=== PATIENT | male | born 1975 | race Caucasian/White ===

== ENCOUNTER 2021-11-01 07:05 | Day surgery (SDC) | payer BC ==
[2021-10-30 14:32] VITALS: BMI 40.1
[~2021-11-01 07:05] MED LIST: DEXAMETHASONE SOD PHOSPHATE 4 MG/ML 1 ML VIAL IV ONE; LACTATED RINGERS 1,000 ML IV SCH; ONDANSETRON 4 MG/2 ML VIAL IVP ONE; ceFAZolin 3 GM in SODIUM CHLORIDE 0.9% 100 ML IVPB PRN
[2021-11-01] MEDS ORDERED: MIDAZOLAM 2 MG/2 ML VIAL IVP ONE (08:12)
--- NOTE | 2021-11-01 09:04 | P.ANPRN ---
Procedure Note - Anesthesia - Nerve Block Performed Right Adductor Canal Single Time Out Performed: Yes (811) Date of Procedure: 11/01/21 Procedure Start Time: :12 Procedure Stop Time: :24 Location of Patient: PreOp Indication: Acute Post-Operative Pain, Dx/Pain Location (Left foot), Requested by Surgeon Specifically requested for management of pain by DrDelaney: Tyson Villavicencio Sedation Type: Sedate with meaningful contact maintained Preparation: Sterile Prep Position: Supine Catheter: None Needle Types: Pajunk Needle Gauge: 21 (100 mm) Ultrasound used to visualize needle placement: Yes Ultrasound used to observe medication spread: Yes Injectate: 0.5% Ropivacaine (see comment for volume) (20 cc + 2mg of decadron) Blood Aspirated: No Pain Paresthesia on Injection Noted: No Resistance on Injection: Normal Image Stored and Saved: Yes Events: Uneventful and Well Tolerated Right Popliteal Single Time Out Performed: Yes Date of Procedure: 11/01/21 Location of Patient: PreOp Indication: Acute Post-Operative Pain, Dx/Pain Location (Right knee), Requested by Surgeon Specifically requested for management of pain by Dr.: Tyson Villavicencio Sedation Type: Sedate with meaningful contact maintained Preparation: Sterile Prep Position: Left Lateral Catheter: None Needle Types: Pajunk Needle Gauge: 21 (100 mm) Ultrasound used to visualize needle placement: Yes Ultrasound used to observe medication spread: Yes Injectate: 0.5% Ropivacaine (see comment for volume) (20 cc + 2mg of decadron) Blood Aspirated: No Pain Paresthesia on Injection Noted: No Resistance on Injection: Normal Image Stored and Saved: Yes Events: Uneventful and Well Tolerated
[2021-11-01] MEDS ORDERED: MIDAZOLAM 2 MG/2 ML VIAL ONE (09:38)
[2021-11-01] MEDS ORDERED: SUCCINYLCHOLINE CHLORIDE 200 MG/10 ML VIAL IV ONE (09:38)
[2021-11-01] MEDS ORDERED: DEXAMETHASONE SOD PHOSPHATE 4 MG/ML 1 ML VIAL ONE (09:38)
[2021-11-01] MEDS ORDERED: LIDOCAINE 2% INJ 20 MG/ML (2 ML VIAL) ONE (09:38)
[2021-11-01] MEDS ORDERED: PROPOFOL 10 MG/ML 20 ML VIAL IV ONE (09:38)
[2021-11-01] MEDS ORDERED: ROPIVACAINE 5 MG/ML 30 ML VIAL ONE (09:38)
[2021-11-01] MEDS ORDERED: fentaNYL (PF) 50 MCG/ML 2 ML AMP ONE (09:38)
[2021-11-01] MEDS ORDERED: LACTATED RINGERS 1,000 ML IV ONE (10:45)
--- NOTE | 2021-11-01 11:01 | P.OP ---
Date of Procedure: 11/01/21 Preoperative Diagnosis: 1. Achilles insertional tendinitis left 2. Calcaneal spur left 3. Gastroc equinus left Postoperative Diagnosis: 1. Same 2. Same 3. Same Procedure(s) Performed: 1. Secondary repair of Achilles tendon left 2. Excision of calcaneal spur left 3. Gastroc recession left Implants: Arthrex speed bridge Anesthesia: GETA Surgeon: Tyson Villavicencio Estimated Blood Loss (ml): 3 Pathology: none sent Condition: stable Disposition: PACU Description of Procedure: Prior to the patient being brought to the operating room, anesthesia administered nerve block on the surgical extremity. Once completed, the patient was taken into the operating room. Timeout was taken to confirm correct patient identifiers, correct laterality of surgery, and correct procedure. When all staff in the room were in agreement with the timeout, the patient was induced and placed under general anesthesia. The patient was then placed in the prone position on the operating room table. Appropriate padding was placed beneath the patient's face as well as in the thoracic area. Once anesthesia was satisfied with the patient positioning, a well-padded tourniquet was placed on the thigh. Then the leg was prepped and draped in the usual manner. The leg wa s exsanguinated and the tourniquet inflated to 250 mmHg. Attention was directed over the posterior aspect of the leg, where the gastroc recession was performed. A linear midline incision was made distal to the gastroc muscle belly. The incision was deepened down to the subcutaneous layer careful to identify, avoid, and retract any neurovascular structures and cauterize any bleeding vessels. Blunt dissection was carried down to level the deep fascia. The fascia was incised and then bluntly dissected off the gastroc aponeurosis. A transverse incision was made through the aponeurosis from medial to lateral. Once completed the ankle was dorsiflexed and a visible gap. And the aponeurosis, indicating a full release. The wound is thoroughly irrigated. The subcutaneous layer was closed with 4-0 Vicryl. And skin closure done with 3-0 Stratafix in a running subcuticular manner. Then attention was directed over the Achilles insertion. A curvilinear incision was made starting in the medial side of the Achilles tendon then curving posteriorly over the insertion point. The incision was deepened down to the subcutaneous layer, careful to identify, avoid, and retract any neurovascular structures and cauterize any bleeding vessels the skin and subcutaneous layers were dissected in a full-thickness fashion off the Achilles tendon. Incisions are made on the anterior aspect of the Achilles tendon, on the medial and lateral aspects, and extended down to the insertion. The Achilles insertion was then sharply removed off the posterior aspect of the calcaneus. There was a large calcific density in the body of the Achilles tendon superior to the insertion point. This is carefully dissected and removed. Any abnormal tissue in the Achilles tendon insertion was also sharply debrided. Once that was completed attention was directed to the posterior calcaneus where there was a large calcaneal spur. An osteotome was used to remove all the abnormal bony growth in the posterior calcaneus. This also allowed for exposure the bone to help facilitate the reattachment of the Achilles tendon. The area was thoroughly irrigated with sterile saline. The distal end of the Achilles tendon was then grasped and pulled distally while holding the ankle at 90. It was brought into contact at the calcaneus to laurie the insertion point. A transverse line was made and marking the insertion point. Then alvarado were made for the drill holes for the anchoring system. The holes were done medial and lateral and approximate 1 cm from the laurie. A total 4 holes were made. All holes were then tapped. The anchors with the sutures attached to the more placed in the most superior holes. Anchors were advanced down to proper depth. With the Achilles tendon pulled distally to the attachment point line, suture was passed through the medial and lateral aspects of the tendon and pulled through. Then the Reyno were cut and tension was placed on the suture down to the attachment point. Utilizing one suture from each anchor, the ends were pulled through the 4.75 swivel lock anchor which were then aligned with their corresponding drill holes. Utilizing proper tensioning techniques and keeping tension on the Achilles tendon to hold the near the insertion point, the anchor was inserted burying the suture within the calcaneus and locking in place. This was repeated for the opposite side. Once completed the ankle was taken through range of motion to test the integrity of the attachment point. It was found to be firmly attached to the posterior aspect of the calcaneus. All the extra suture was then cut flush with or anchors. Any thickened Achilles tendon was also sharply removed at this point. The area was thoroughly irrigated with sterile saline. The subcutaneous layer was closed with 4-0 Monocryl and skin closure done with ayaan. Dermal glue and Steri-Strips are placed across the proximal incision. Both incisions were covered with an Arthrex jumpstart dressing. A dry bulky dressing was then applied to the leg. The tourniquet was released and capillary refill return to all digits on the foot. The patient was then placed in a well- padded, well molded plaster posterior mold/sugar tong splint. The ankle was held at 90 until the splint was fully dried. Then the patient was rolled back to the transfer table. Anesthesia was reversed and he was not medically extubated. The patient tolerated the above procedure and anesthesia well, and went to recovery with vital signs stable.
[2021-11-01] MEDS: HYDROmorphone 0.5 MG/0.5 ML SYRINGE IVP PRN ×3 (11:05→11:21)
[2021-11-01 11:07] VITALS: TEMP 96.9
[2021-11-01] MEDS ORDERED: HYDROcodone/APAP 5-325MG 1 EACH TAB ONE (11:59)
[2021-11-01] MEDS ORDERED: HYDROcodone/APAP 5-325MG 1 EACH TAB PO ONE (12:05)
[2021-11-01 12:12] VITALS: BP 132/86; PULSE 82; RESP 16
== END 2021-11-01 13:04 | disposition home or self-care (01) ==
LOC: OR 07:05
PROVIDERS: ATTEND Podiatrist
DX: M76.62 Achilles tendinitis, left leg (principal); M76.61 Achilles tendinitis, right leg; M77.31 Calcaneal spur, right foot; M77.32 Calcaneal spur, left foot; M25.571 Pain in right ankle and joints of right foot; M21.6X1 Other acquired deformities of right foot; M62.461 Contracture of muscle, right lower leg; M21.962 Unspecified acquired deformity of left lower leg; G89.18 Other acute postprocedural pain; M79.672 Pain in left foot; E78.5 Hyperlipidemia, unspecified; G47.33 Obstructive sleep apnea (adult) (pediatric); Z90.49 Acquired absence of other specified parts of digestive tract; Z83.3 Family history of diabetes mellitus; Z87.891 Personal history of nicotine dependence; Z86.59 Personal history of other mental and behavioral disorders
CPT/HCPCS: 64447; 64445; 76942; 27654; 28119; 27687; C1713; J2250; J0330; J1100; J0690; J2405; J3010; J2795; J2704; J1170; J2001